=== PATIENT | female | born 1970 | race Caucasian/White ===

== ENCOUNTER 2022-06-10 17:51 | Emergency (ER) | payer BC, OTHER ==
[2022-06-10] MEDS ORDERED: iohexoL-300 100 ML VIAL ONE (18:33)
--- NOTE | 2022-06-10 18:33 | ED Physician Documentation ---
History of Present Illness - Stated complaint Stated Complaint: R ARM NUMBNESS/TINGLING - Chief complaint Chief Complaint: Ext Problem - Additonal information Additional information: 52-year-old female presents to the emergency department for evaluation of acute onset right arm heaviness and numbness that began now about 5:30 PM. She was simply standing and cooking dinner using a spatula when she began to feel a heaviness and numbness in her right arm. She looked at her hand and found that there was a black area on the palmar side of her index finger MCP joint. The symptoms lasted about 10 minutes. She no longer has the numbness in her right arm but she does feel that her arm is heavy and dull. 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 She reports past medical history of hypertension otherwise for which she takes verapamil 240 mg daily She denies tobacco use. Her NIHSS on arrival is 0 Review of Systems Constitutional: reports: Reviewed and negative Throat: reports: Reviewed and negative Cardiac: reports: Reviewed and negative Respiratory: reports: Reviewed and negative GI: reports: Reviewed and negative : reports: Reviewed and negative Skin: reports: Reviewed and negative Musculoskeletal: reports: Neck pain Neurologic: reports: Numbness. denies: Difficulty speaking, Near syncope, Seizure, Headache, Head injury Psychiatric: reports: Reviewed and negative PD PAST MEDICAL HISTORY - Present Medications Home Medications: Ambulatory Orders Medication Instructions Recorded Confirmed Verapamil ER [Calan SA] 120 mg PO DAILY 06/10/22 06/10/22 - Allergies Allergies/Adverse Reactions: Allergies Allergy/AdvReac Type Severity Reaction Status Date / Time Sulfa (Sulfonamide Allergy Unknown Verified 06/10/22 18:29 Antibiotics) PD ED PE NORMAL - General General: Alert and oriented X 3, No acute distress, Well developed/nourished - HEENT HEENT: Atraumatic, Moist mucous membranes - Neck Neck: Supple, no meningeal sign, No adenopathy - Cardiac Cardiac: RRR, No murmur, Strong equal pulses (2+ radial pulses bilaterally. Brisk cap refill of both hands no swelling obvious deformities noted. 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 No: No sensory deficit (subjective right arm numbness) Eye Opening: Spontaneous Motor: Obeys Commands Verbal: Oriented GCS Score: 15 Results - Vitals Vitals: Vital Signs - 24 hr 06/10/22 06/10/22 06/10/22 18:04 19:34 20:09 Temperature 36.9 C Heart Rate 84 85 70 Respiratory 14 15 17 Rate Blood Pressure 173/96 H 165/98 H O2 Saturation 100 99 97 Oxygen O2 Source Room air - EKG (time done) 1927 Rate: Rate (enter#) (83) Rhythm: NSR [place]: Normal Intervals: Normal NH QRS: Normal Ischemia: Normal ST segments Compare to prior EKG: Old EKG unavailable Computer interpretation: Agree with computer - Labs Labs: Laboratory Tests 06/10/22 06/10/22 06/10/22 18:45 18:45 18:45 WBC 7.9 RBC 4.92 Hgb 14.3 Hct 42.7 MCV 86.8 MCH 29.1 MCHC 33.5 RDW 12.5 Plt Count 291 MPV 8.1 Neut # (Auto) 5.6 Lymph # (Auto) 1.6 [place] # (Auto) 0.4 Eos # (Auto) 0.1 Baso # (Auto) 0.1 Absolute Nucleated RBC 0.00 Nucleated RBC % 0.0 Sodium 138 Potassium 4.3 Chloride 101 Carbon Dioxide 28 Anion Gap 9.0 BUN 13 Creatinine 0.5 Estimated GFR (MDRD) 130 Glucose 101 H Calcium 9.2 Total Bilirubin 0.5 AST 22 ALT 23 Alkaline Phosphatase 54 Troponin I High Sens 3.2 Total Protein 7.5 Albumin 4.5 Globulin 3.0 Albumin/Globulin Ratio 1.5 Lipase 35 06/10/22 20:07 WBC RBC Hgb Hct MCV MCH MCHC RDW Plt Count MPV Neut # (Auto) Lymph # (Auto) [place] # (Auto) Eos # (Auto) Baso # (Auto) Absolute Nucleated RBC Nucleated RBC % Sodium Potassium Chloride Carbon Dioxide Anion Gap BUN Creatinine Estimated GFR (MDRD) Glucose Calcium Total Bilirubin AST ALT Alkaline Phosphatase Troponin I High Sens 2.8 Total Protein Albumin Globulin Albumin/Globulin Ratio Lipase - Rads (name of study) angio head and neck Radiology: Final report received (No acute intracranial process. No areas of hemodynamically significant stenosis vascular occlusion or aneurysmal dilation within the anterior posterior circulation. No stenosis vascular occlusions or aneurysmal dilation within the neck vasculature.) cxr Radiology: Final report received (No acute cardiopulmonary process) PD Medical Decision Making - ED course Complexity details: reviewed results, re-evaluated patient, considered differential, d/w patient ED course: 52-year-old female presented to the emergency department for evaluation of sudden onset right arm tingling and a sensation of being heavy and numb. She also had some tingling in her face at that time. She had no slurred speech, facial droop or loss of function. She does have a history of a spontaneous right carotid artery dissection at 38 years of age which was managed conservatively at [facility]'s and after 18 months follow-up she had been told the dissection had resolved. On presentation to the emergency department she was mildly hypertensive but had no other worrisome vital sign abnormalities. Her NIHSS was 0. We did obtain a screening EKG that showed no signs of ischemia. CBC and electrolytes were also obtained and per my interpretation show no worrisome findings. 2 high- sensitivity troponins were also negative. Clinically this is not consistent with ACS. However given the history of carotid artery dissection we did proceed to do CT angio of the head and neck and reassuringly there were no findings of aneurysm dissection or stenosis in any of the vessels. She has remained stable while here in the emergency department. Though it is not clear what the cause of the tingling and subjective numbness is due to clinically she does not appear to be having a CVA, [place] and there are no clinical findings to suggest a carotid dissection. She is being discharged home in stable condition. Advise close follow-up with PCP. She may benefit from outpatient evaluation with cardiology for a stress test and/or echocardiogram. Worrisome emergent return precautions otherwise discussed. Departure - Departure Disposition: 01 Home, Self Care Clinical Impression: Right arm and right face tingling Condition: Stable Record reviewed to determine appropriate education?: Yes Comments: You came to the emergency department today because when you were cooking dinner you began to feel a tingling and numbness in your right arm. You do have a history of a spontaneous right carotid artery dissection when you are 38 years old. Today in the emergency department we obtained routine labs that were essentially normal without worrisome findings. Your EKG was normal and did not show signs of a heart attack. 2 troponins for you have also been negative. Because of the history of the carotid dissection we did do CT angiograms of your neck and head. There were no abnormal findings to suggest dissection aneurysm or stenosis within any of the blood vessels including your carotid arteries. At this time it is not clear what the cause of your symptoms was. However it is important to follow closely with your primary doctor. I do recommend that you take a daily aspirin 81 mg. With your age and history I would make the recommendation to follow closely with a fabrication machine operator. You may benefit from an outpatient echocardiogram or stress test. Return to the emergency department if you develop any facial droop, have slurred speech, sudden weakness in the arm or feel that your symptoms are worsening in any way. NIHSS - Time Time: 18:25 - Level of Consciousness Level of consciousness: (0) Alert, Keenly responsive LOC Questions: (0) Answers both Q's correct LOC Commands: (0) Performs both correctly - Gaze Best Gaze: (0) Normal - Visual Visual: (0) No loss - Facial Palsy Facial Palsy: (0) Normal, symmetrical movement - Motor Arms (both separate) Motor Arm (right): (0) No drift - Motor Legs (both separate) Motor Leg (right): (0) No drift Motor Leg (left): (0) No drift - Limb Ataxia Limb Ataxia: (0) Absent - Sensory Sensory: (0) Normal - Best Language Best Language: (0) No aphasia - Dysarthria Dysarthria: (0) Normal - Extinction and Inattention (formally neg Extinction and inattention: (0) No abnormality
[2022-06-10 18:52] LABS: BASOPHILS # (AUTO) 0.1 10^3/uL (0.0-0.1); BASOPHILS % (AUTO) 0.6 %; EOSINOPHILS # (AUTO) 0.1 10^3/uL (0.0-0.7); EOSINOPHILS % (AUTO) 1.5 %; HCT - HEMATOCRIT 42.7 % (37.0-47.0); HGB - HEMOGLOBIN 14.3 g/dL (12.0-16.0); LYMPHOCYTES # (AUTO) 1.6 10^3/uL (1.5-3.5); LYMPHOCYTES % (AUTO) 20.8 %; MEAN CORPUSCULAR HEMOGLOBIN 29.1 pg (27.0-31.0); MEAN CORPUSCULAR HGB CONC 33.5 g/dL (32.0-36.0); MEAN CORPUSCULAR VOLUME 86.8 fL (81.0-99.0); MEAN PLATELET VOLUME 8.1 fL (7.9-10.8); MONOCYTES # (AUTO) 0.4 10^3/uL (0.0-1.0); MONOCYTES % (AUTO) 5.1 %; NEUTROPHILS # (AUTO) 5.6 10^3/uL (1.5-6.6); NEUTROPHILS % (AUTO) 71.7 %; PLT - PLATELET COUNT 291 10^3/uL (130-450); RED BLOOD COUNT 4.92 10^6/uL (4.20-5.40); RED CELL DISTRIBUTION WIDTH 12.5 % (12.0-15.0); WHITE BLOOD COUNT 7.9 x10^3/uL (4.8-10.8)
--- NOTE | 2022-06-10 18:59 | XRAY Report ---
PROCEDURE: Chest 1 View X-Ray INDICATIONS: Chest Pain TECHNIQUE: One view of the chest was acquired. COMPARISON: None. FINDINGS: Surgical changes and devices: None. Lungs and pleura: No pleural effusions or pneumothorax. Lungs are clear. Mediastinum: Mediastinal contours appear normal. Heart size is normal. Bones and chest wall: No suspicious bony lesions. Overlying soft tissues appear unremarkable. IMPRESSION: No acute cardiopulmonary disease. Reviewed by: Kathe Smith MD on 06/10/2022 5:58 PM [facility] Approved by: Kathe Smith MD on 06/10/2022 5:58 PM [facility] Station ID: [id number]
[2022-06-10 19:05] LABS: ALBUMIN 4.5 g/dL (3.2-5.5); ALBUMIN/GLOBULIN RATIO 1.5 (1.0-2.2); BILIRUBIN,TOTAL 0.5 mg/dL (0.2-1.0); CALCIUM 9.2 mg/dL (8.5-10.3); CREATININE 0.5 mg/dL (0.4-1.0); POTASSIUM 4.3 mmol/L (3.5-5.0); TOTAL PROTEIN 7.5 g/dL (6.7-8.2)
--- NOTE | 2022-06-10 19:25 | CT Report ---
PROCEDURE: ANGIO HEAD W/WO INDICATIONS: Right arm numbness CONTRAST: 80mL Omni 300 TECHNIQUE: Precontrast 4.5 mm thick angled axial sections acquired from the foramen magnum to the vertex. Afte r the administration of intravenous contrast, 1 mm thick sections acquired through the [place] of [place] is. Postcontrast 4.5 mm thick sections then re-acquired from the foramen magnum to the vertex. 3-di mensional cduzsxi-ymmpvlvzl-gttubtaedo (MIP) and/or volume rendering reformats were acquired of the c entral intracranial vasculature. For radiation dose reduction, the following was used: automated ex posure control, adjustment of mA and/or kV according to patient size. COMPARISON: CTA neck 06/10/2022 FINDINGS: Image quality: Excellent. Anterior circulation: Intracranial internal carotid arteries are normal in size and flow. The flow within the paired anterior cerebral arteries is normal and symmetric. The flow within the middle cer ebral arteries is normal and symmetric. The anterior communicating artery is seen. No aneurysms are seen. Posterior circulation: There is a right vertebral artery dominance. Visualized portions of the verte bral arteries demonstrate normal caliber, and join to form a normal appearing basilar artery. Flow w ithin the posterior cerebral arteries is normal and symmetric. No aneurysms are seen. 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 CSF spaces: Ventricles are normal in size and shape. Basal cisterns are patent. No extra-axial flu id collections. Brain: No midline shift. No intracranial bleeds or masses. [place]-white matter interface appears int act. Skull and face: Calvarium and facial bones appear intact, without suspicious lesions. Sinuses: Visualized sinuses and mastoids are clear. IMPRESSION: 1. No acute intracranial process. 2. No areas of hemodynamically significant stenosis, vascular occlusion or aneurysmal dilation within the anterior or posterior circulation. Reviewed by: Ashly Gandara MD on 06/10/2022 7:24 PM PST Approved by: Ashly Gandara MD on 06/10/2022 7:24 PM PST Station ID: [id number]
--- NOTE | 2022-06-10 19:27 | CT Report ---
PROCEDURE: ANGIO NECK W INDICATIONS: Right arm numbness CONTRAST: 80mL Omni 300 TECHNIQUE: After the administration of intravenous contrast, 1.5 mm axial sections acquired from the aortic arch to the [place] of [place]. Coronal 3-D maximum intensity projection (MIP) and/or volume rendering ref ormats were then performed. For radiation dose reduction, the following was used: automated exposur e control, adjustment of mA and/or kV according to patient size. COMPARISON: CTA head 06/10/2022 FINDINGS: Image quality: Excellent. Carotid system: The great vessels demonstrate a conventional anatomy as they arise from the aortic a rch. The origins of the common carotid arteries appear patent. The common carotid arteries demonstr ate normal calibers and courses. The bifurcation regions appear normal bilaterally. The internal ca rotid arteries demonstrate normal caliber and course. Posterior circulation: The origins of the vertebral arteries appear patent. The more superior porti ons of the vertebral arteries demonstrate normal course and caliber. They join to form a normal appe aring basilar artery. Soft tissues: Visualized neck soft tissues demonstrate no suspicious abnormalities. The thyroid is normal in size and there are no incidental findings. Bones: No suspicious bony lesions. Visualized cervical spine appears normally aligned. IMPRESSION: There are no areas of hemodynamically significant stenosis, vascular occlusion or aneurysmal dilation within the neck vasculature. The estimate of stenosis included in the report of the imaging study was calculated using the NASCET method CLINICAL RECOMMENDATION STATEMENTS: In patients <35 years with an ITN detected on CT, MRI, or extrathyroidal ultrasound, the Committee re commends further evaluation with dedicated thyroid ultrasound if the nodule is "e1 cm and has no susp icious imaging features, and if the patient has normal life expectancy. In patients "e35 years with an ITN detected on CT, MRI, or extrathyroidal ultrasound, the Committee r ecommends further evaluation with dedicated thyroid ultrasound if the nodule is "e1.5 cm and has no s uspicious imaging features, and if the patient has normal life expectancy. (ACR, 2014) Reviewed by: Ashly Gandara MD on 06/10/2022 7:25 PM PST Approved by: Ashly Gandara MD on 06/10/2022 7:25 PM PST Station ID: [id number]
[2022-06-10] MEDS ORDERED: iohexoL-300 100 ML VIAL IVP ONE (20:02)
[2022-06-10 21:04] VITALS: BP 166/88
== END 2022-06-10 21:03 | disposition home or self-care (01) ==
LOC: ED 17:51
DX: R20.2 Paresthesia of skin (principal); I10 Essential (primary) hypertension
CPT/HCPCS: 36415; 70496; 70498; 71045; 80053; 83690; 84484; 85025; 93005; 99283; 99284; Q9967